=== PATIENT | male | born 1985 | race Caucasian/White ===

== ENCOUNTER 2020-02-26 12:07 | Emergency (ER) | payer MEDICAID ==
[~2020-02-26] VITALS: Ht 172.7 cm; Wt 76.2 kg
[2020-02-26 12:21] VITALS: Ht 172.7 cm; Wt 76.2 kg
[2020-02-26 18:06] VITALS: BP 124/85
== END 2020-02-26 18:06 | disposition short-term general hospital (02) ==
LOC: ED 12:07
DX: S68.122A Partial traumatic metacarpophalangeal amputation of right middle finger, initial encounter (principal); S68.124A Partial traumatic metacarpophalangeal amputation of right ring finger, initial encounter; S68.126A Partial traumatic metacarpophalangeal amputation of right little finger, initial encounter; W22.8XXA Striking against or struck by other objects, initial encounter; Y93.89 Activity, other specified; Y92.89 Other specified places as the place of occurrence of the external cause; Y99.8 Other external cause status
CPT/HCPCS: J0690; J2270; J3010; Q0092